=== PATIENT | female | born 1935 | race Caucasian/White ===

== ENCOUNTER 2022-01-10 10:32 | Inpatient (IN) | payer MEDICARE, BC ==
[2022-01-10] MEDS ORDERED: SODIUM CHLORIDE 0.9% 1,000 ML IV ONE (11:06)
[2022-01-10] MEDS ORDERED: MORPHINE SULFATE 4 MG/ML SYRINGE IV STA (11:06)
[2022-01-10] MEDS ORDERED: DIPH,PERTUS(ACELL)TETVAC-LF 0.5 ML VIAL IM ONE (11:11)
[2022-01-10 12:02] LABS: Basophils # (A) 0.1 k/uL (0-0.2); Basophils % (A) 1 %; Eosinophils # (A) 0.2 k/uL (0-0.7); Eosinophils % (A) 4 %; HCT 30.1 % (34.0-46.0); HGB 9.8 gm/dL (11.4-16.0); Lymphocytes # (A) 1.2 k/uL (1.0-4.8); Lymphocytes % (A) 26 %; MCH 30.1 pg (25.0-35.0); MCHC 32.4 g/dL (31.0-37.0); MCV 92.8 fL (80.0-100.0); Mean Platelet Volume 9.2; Monocytes # (A) 0.3 k/uL (0-1.0); Monocytes % (A) 7 %; Neutrophils # (A) 2.6 k/uL (1.3-7.7); Neutrophils % (A) 58 %; Platelet Count 155 k/uL (150-450); RBC 3.24 m/uL (3.80-5.40); RDW 15.2 % (11.5-15.5); WBC 4.4 k/uL (3.8-10.6)
--- NOTE | 2022-01-10 12:09 | CT ---
EXAMINATION TYPE: CT brain joseph wahl DATE OF EXAM: 01/10/2022 COMPARISON: None available HISTORY: Fall, head injury, pain to left side of neck. CT DLP: 1335.4 mGycm Automated exposure control for dose reduction was used. TECHNIQUE: CT scan of the head and cervical spine are performed without contrast. FINDINGS: Brain: Brain volume loss changes, likely age-related. Suspected mild bilateral cerebral white matter chronic microvascular ischemic changes. Scattered arterial atherosclerotic calcifications. No acute intracra nial hemorrhage or gross acute cortical infarct. No midline shift or herniation. Unremarkable basal c isterns, sella and CP angles. No gross space-occupying lesion, vasogenic edema or mass effect. Smaller right eye globe with posterior chamber hyperdensity which could be related to vitreous hemorr sandra or retinal detachment. Recommend clinical correlation and ophthalmology consultation. No gross l eft orbital abnormality. Chronic inflammatory changes of the maxillary sinuses and sphenoid sinus wit h previous sinus surgery. Opacified left mastoid air cells. Osteopenia. No definite acute calvarial b one fracture identified. Cervical spine: Anterolisthesis of C6 over C7, likely degenerative. No definite acute vertebral body collapse or acut e displaced fracture. No facet dislocation or significant subluxation. Degenerative changes of the at lantoaxial articulations more on the left side. Degenerative changes of the remainder of the cervical spine with multilevel opposing endplate osteoph ytosis, degenerated discs and uncovertebral osteoarthropathy, most evident at C5-6 level. Multilevel facet osteoarthropathy is also noted, more on the left side and most evident at C6-7 level. Nondisplaced to mildly displaced fractures of the medial aspect of the right first rib, anterior aspe ct of the right second rib as well as the left first and second ribs, likely chronic. Right C3-4 and left C4-5 neuroforaminal stenosis. Spinal canal stenosis is seen at C3-4, C4-5 and C5-6 levels. Arter ial atherosclerotic calcifications. COPD changes. No paraspinal lesion. IMPRESSION: 1. No acute intracranial posttraumatic sequela or acute calvarial bone fracture. 2. Suspected right retinal detachment versus vitreous hemorrhage as described above, possibly chronic , for clinical correlation and ophthalmology consultation. 3. No acute traumatic bony injury of the cervical spine. 4. Degenerative changes of the cervical spine as described above. 5. Bilateral upper rib fractures, possibly chronic, please correlate clinically. Other incidental fin dings as described above.
[2022-01-10 12:17] LABS: Partial Thromboplastin Time 21.8 sec (22.0-30.0)
[2022-01-10 12:22] LABS: Calcium 9.5 mg/dL (8.4-10.2); Total Bilirubin 0.5 mg/dL (0.2-1.3); Total Protein 9.4 g/dL (6.3-8.2)
--- NOTE | 2022-01-10 12:31 | XR ---
EXAMINATION TYPE: XR pelvis AP view, XR tibia fibula RT, XR knee limited RT, XR femur RT DATE OF EXAM: 01/10/2022 CLINICAL HISTORY: Pelvic and right femur along with leg and knee pain after fall injury. TECHNIQUE: A single AP view of the pelvis is obtained. Two views of the right hip are obtained. COMPARISON: None. FINDINGS: There is acute comminuted displaced intertrochanteric fracture right proximal femur. Subtle lucency w ith cortical breakthrough suspected peripheral superior pelvic ramus fracture near level of acetabulu m. No hip joint dislocation. Pubic symphysis is not widened. Sacroiliac joints are preserved. Occasio nal scattered pelvic phleboliths. No additional acute fracture or dislocation in the mid to distal right femur. Metallic hardware from total right knee arthroplasty is satisfactory in position. No periprosthetic f racture. Right leg shows no acute fracture or dislocation in the tibia or fibula. There is poor AP positioning noted. Overlying soft tissue is unremarkable. IMPRESSION: There is acute comminuted displaced intertrochanteric fracture right proximal femur. The re is additional acute minimally displaced fracture of the peripheral aspect of the right superior pe lvic ramus near level of acetabulum. Consider CT follow-up to further evaluate.
--- NOTE | 2022-01-10 12:32 | XR ---
EXAMINATION TYPE: XR chest 1V portable DATE OF EXAM: 01/10/2022 COMPARISON: NONE HISTORY: Fall injury with pain. TECHNIQUE: Single frontal supine view of the chest is obtained. FINDINGS: Reticular interstitial prominence bilaterally. There is no suspicious focal air space opac ity, pleural effusion, or pneumothorax seen. The cardiac silhouette size is mildly enlarged. Surgica l change right scapula with screw. Partial visualization of surgical change left humeral head. IMPRESSION: Mild cardiomegaly and chronic parenchymal changes without acute pulmonary process.
[2022-01-10] MEDS ORDERED: MORPHINE SULFATE 4 MG/ML SYRINGE IVP STA (12:59)
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
--- NOTE | 2022-01-10 13:32 | CT ---
EXAMINATION TYPE: CT pelvis wo con DATE OF EXAM: 01/10/2022 INDICATION: pelvic and RT HIP FRACTURE CT DLP: 381.7 mGy.cm Automated Exposure Control for Dose Reduction was Utilized. TECHNIQUE AND CONTRAST: CT scan of the pelvic bones is performed without IV contrast administration. 3-D reconstruction image s were generated on an independent workstation and reviewed. COMPARISON: X-ray performed earlier same day. FINDINGS: Acute comminuted partially impacted and slightly angulated right femoral neck intertrochanteric fract ure with multiple bone fragments and a gap up to 15 mm at the fracture site. Posterior angu lation of the distal fracture fragment. Surrounding right gluteal and right upper thigh soft tissue s welling/hematoma. Chronic healed fractures of the right superior, right inferior pubic rami as well as the right body o f the pubis and left inferior pubic ramus. Subtle acute on top of chronic fracture of the right super ior pubic ramus and right body of pubis cannot be excluded. Healing/healed fracture of the S5 segment of the sacrum. Mild degenerative changes of the hip joints and sacroiliac joints. Advanced degenerative changes of t he lumbar spine. Lemos catheter is seen within the urinary bladder. Significant fecal loading of the colon suggestive of constipation. Arterial atherosclerotic calcifications. Suspected cyst arising fro m the anterior aspect of the right kidney. Right lateral upper thigh muscular lipoma measuring 3.3 cm . IMPRESSION: Right femoral neck intertrochanteric communicated fracture as described above, for orthopedic consult ation. Other pelvic bone fractures, likely chronic as detailed above. Right gluteal and right upper t high soft tissue swelling/hematoma. Other incidental findings as described above.
[2022-01-10] MEDS ORDERED: NALOXONE 0.4 MG/ML 1 ML VIAL IV PRN (14:20)
[2022-01-10] MEDS: SODIUM CHLORIDE 0.9% 1,000 ML IV SCH (14:32)
[2022-01-10] MEDS ORDERED: HYDROmorphone 0.5 MG/0.5 ML SYRINGE IVP STA (16:39)
[2022-01-10] MEDS: ARTIFICIAL TEARS-HYPROMELLOSE DROPS 15 ML BTL LEFT EYE SCH ×2 (17:07→21:14)
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
[2022-01-10] MEDS ORDERED: ALPRAZolam 1 MG TAB PO PRN (17:38)
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
[2022-01-10] MEDS: lisinopriL 20 MG TAB PO SCH (18:12)
[2022-01-10] MEDS: MORPHINE SULFATE 4 MG/ML SYRINGE IVP PRN (18:13)
[2022-01-10] MEDS: HYDROcodone/APAP 5-325MG 1 EACH TAB PO PRN (19:47)
[2022-01-10] MEDS: SERTRALINE 100 MG TAB PO SCH (21:14)
[2022-01-11] MEDS: MORPHINE SULFATE 4 MG/ML SYRINGE IVP PRN ×3 (05:20→15:10)
[2022-01-11] MEDS: SODIUM CHLORIDE 0.9% 1,000 ML IV SCH ×2 (06:20→19:30)
[2022-01-11] MEDS: SERTRALINE 100 MG TAB PO SCH ×2 (06:59→19:30)
[2022-01-11] MEDS: OXYBUTYNIN 10 MG TAB.ER.24 PO SCH (06:59)
[2022-01-11] MEDS: ARTIFICIAL TEARS-HYPROMELLOSE DROPS 15 ML BTL LEFT EYE SCH ×5 (07:00→22:24)
[2022-01-11] MEDS ORDERED: MIDAZOLAM 2 MG/2 ML VIAL ONE (07:55)
[2022-01-11] MEDS ORDERED: fentaNYL (PF) 50 MCG/ML 2 ML AMP ONE (07:55)
[2022-01-11] MEDS ORDERED: PROPOFOL 10 MG/ML 20 ML VIAL IV ONE (07:55)
[2022-01-11] MEDS ORDERED: KETAMINE 10 MG/ML 20 ML VIAL ONE (07:55)
[2022-01-11] MEDS ORDERED: LACTATED RINGERS 1,000 ML IV ONE (08:01)
[2022-01-11 09:00] LABS: African American GFR (CKD) 46.7 (60.0-200.0); Albumin 3.4 g/dL (3.8-4.9); Albumin/Globulin Ratio 0.94 (1.60-3.17); Anion Gap 11.9 mmol/L (10.00-18.00); BUN/Creat Ratio 24.33 Ratio (12.00-20.00); Blood Urea Nitrogen 29.2 mg/dL (9.0-27.0); Carbon Dioxide 20.1 mmol/L (20.0-27.5); Globulin 3.6 g/dL (1.6-3.3); Non-African American GFR(CKD) 40.3 (60.0-200.0); Potassium 5.4 mmol/L (3.5-5.5); Total Bilirubin 0.4 mg/dL (0.30-1.20)
[2022-01-11] MEDS ORDERED: ceFAZolin 1,000 MG in SODIUM CHLORIDE 0.9% 1,000 ML IRRIGATION ONE (09:13)
[2022-01-11 09:45] LABS: Basophils # (A) 0.04 X 10*3/uL (0.00-0.10); Basophils % (A) 0.6 %; Eosinophils # (A) 0.04 X 10*3/uL (0.04-0.35); Eosinophils % (A) 0.6 %; HCT 24.3 % (37.2-46.3); HGB 7.3 g/dL (12.0-15.0); Immature Grans, Automated 0.5 %; Lymphocytes % (A) 23.3 %; MCH 28.5 pg (27.0-32.0); MCV 94.9 fL (80.0-97.0); Mean Platelet Volume 11.7 fL (9.5-12.2); Monocytes # (A) 0.95 X 10*3/uL (0.20-1.00); Monocytes % (A) 14.7 %; NRBC Per 100 WBC 0 /100 WBCS (0.0-0.0); Neutrophils # (A) 3.89 X 10*3/uL (1.80-7.70); Neutrophils % (A) 60.3 %; Platelet Count 87 X 10*3/uL (140-440); RBC 2.56 X 10*6/uL (4.10-5.20); RBC Morphology NORMAL; RDW 15.1 % (11.5-14.5); WBC 6.45 X 10*3/uL (4.50-10.00)
[2022-01-11] MEDS ORDERED: ACETAMINOPHEN TAB 325 MG TAB PO PRN (10:17)
[2022-01-11] MEDS ORDERED: NALOXONE 0.4 MG/ML 1 ML VIAL IV PRN (10:17)
--- NOTE | 2022-01-11 10:29 | XR ---
EXAMINATION TYPE: XR Hip Complete RT DATE OF EXAM: 01/11/2022 10:03 AM INDICATION: Patient age:Female; 86 years old; Reason for study: IM Nail Rt Hip; PHH. Intraoperative fluoroscopic services were provided for internal fixation of a right proximal femur. T otal fluoroscopy time 1.57 minutes with a total of 2 submitted images to PACS. Please see the operati ve note for further details.
[2022-01-11 13:43] LABS: Basophils # (A) 0.1 k/uL (0-0.2); Basophils % (A) 0 %; Eosinophils # (A) 0.1 k/uL (0-0.7); Eosinophils % (A) 0 %; HCT 31.6 % (34.0-46.0); HGB 9.2 gm/dL (11.4-16.0); Hypochromasia Marked; Lymphocytes % (A) 14 %; MCH 29.6 pg (25.0-35.0); MCV 102.3 fL (80.0-100.0); Macrocytosis Slight; Mean Platelet Volume 8.1; Monocytes # (A) 1.1 k/uL (0-1.0); Monocytes % (A) 8 %; Neutrophils # (A) 10.8 k/uL (1.3-7.7); Neutrophils % (A) 76 %; Platelet Count 148 k/uL (150-450); RBC 3.09 m/uL (3.80-5.40); RDW 14.7 % (11.5-15.5); WBC 14.3 k/uL (3.8-10.6)
[2022-01-11] MEDS: lisinopriL 20 MG TAB PO SCH (15:02)
--- NOTE | 2022-01-11 15:29 | P.PN ---
Subjective Progress Note Date: 01/11/22 Principal diagnosis: R hip pain Patient status post IM nail for right hip intertrochanteric fracture status post fall. Her hemoglobin this morning dropped from 9.8-7.3 but is 9.2 on repeat. Reports from nursing for BP 170s over 90s. BP is 174/68 when rechecked at bedside. Patient reports well-controlled pain in her right hip. She has no complaints otherwise. She denies any chest pain, shortness breath or palpitations. No nausea or vomiting. No fever or chills. Objective - Vital Signs Vital signs: Vital Signs Temp 97.5 F L 01/11/22 15:04 Pulse 91 01/11/22 15:04 Resp 17 01/11/22 15:04 BP 147/64 01/11/22 15:04 Pulse Ox 96 01/11/22 15:04 Intake & Output 01/10/22 01/11/22 01/11/22 18:59 06:59 18:59 Intake Total 750 601 Output Total 650 625 450 Balance -650 125 151 Weight 64.864 kg Intake: IV 601 Oral 750 Output: Urine 650 625 300 Estimated Blood Loss 150 Other: Voiding Method Indwelling Catheter # Bowel Movements 0 - Exam General: [non toxic], [no distress], [appears at stated age] Derm: [warm], [dry] Head: [atraumatic], [normocephalic], [symmetric] Eyes: [EOMI], [no lid lag], [anicteric sclera] Mouth: [no lip lesion], [mucus membranes moist] Cardiovascular: [S1S2 reg], [no murmur], [positive DP pulse bilateral], Lungs: [CTA bilateral], [no rhonchi, no rales] , [no accessory muscle use] Ext: [no gross muscle atrophy], [no edema], [limited range of motion of the right hip due to pain], [right hip dressing clean dry and intact] Neuro: [no focal neuro deficits] Psych: [Alert], [oriented], [appropriate affect] - Labs CBC & Chem 7: 01/11/22 13:00 01/11/22 05:07 Labs: Abnormal Lab Results - Last 24 Hours (Table) 01/11/22 01/11/22 01/11/22 Range/Units 05:07 05:07 13:00 WBC 14.3 H (3.8-10.6) k/uL RBC 2.56 L 3.09 L (4.10-5.20) X 10*6/uL Hgb 7.3 L 9.2 L (12.0-15.0) g/dL Hct 24.3 L 31.6 L (37.2-46.3) % MCV 102.3 H D (80.0-100.0) fL MCHC 30.0 L 29.0 L (32.0-37.0) g/dL RDW 15.1 H (11.5-14.5) % Plt Count 87 L 148 L (140-440) X 10*3/uL Plt Count Comment DECREASED A Neutrophils # 10.8 H (1.3-7.7) k/uL Monocytes # 1.1 H (0-1.0) k/uL BUN 29.2 H (9.0-27.0) mg/dL Est GFR (CKD-EPI)AfAm 46.7 L (60.0-200.0) Est GFR (CKD-EPI)NonAf 40.3 L (60.0-200.0) BUN/Creatinine Ratio 24.33 H (12.00-20.00) Ratio Glucose 125 H (70-110) mg/dL AST 10 L (13-35) U/L ALT 7 L (8-44) U/L Albumin 3.4 L (3.8-4.9) g/dL Globulin 3.6 H (1.6-3.3) g/dL Albumin/Globulin Ratio 0.94 L (1.60-3.17) g/dL Assessment and Plan Assessment: #Acute blood loss anemia #Isolated systolic hypertension #Leukocytosis #Acute kidney injury #Right hip pain status post IM nail POD 0 for right femoral neck intertrochanteric fracture Chronic conditions: Urinary incontinence, depression Her hemoglobin postoperatively was 7.3 significant drop from 9.8. However, repeat at 1 PM is 9.2. We will repeat CBC tomorrow morning. Transfuse if hemoglobin less than 7. Patient is noted to isolated elevated systolic blood pressure as high as 170s. When her BP was checked during my rounds, her SBP was 150s. Will give her dose of lisinopril early. She is on lisinopril 20 mg by mouth at bedtime. Continue heart healthy diet. Monitor vitals and adjust medication if necessary. Her leukocytosis is likely reactive from surgery. There are no signs of active infection. We will continue to monitor. Her acute kidney injury has improved since admission. Unknown if superimposed on CKD given no baseline creatinine. Continue IV hydration for 1 more day. Repeat BMP tomorrow morning. PT and OT will be consulted to work with this patient. Her pain is well- controlled with morphine as needed. Lovenox for DVT prophylaxis. DC planning as per PT and OT recommendations.
[2022-01-11] MEDS: SENNOSIDES-DOCUSATE SODIUM 1 EACH TAB PO SCH (19:30)
[2022-01-11] MEDS: HYDROcodone/APAP 5-325MG 1 EACH TAB PO PRN (19:31)
--- NOTE | 2022-01-11 21:25 | P.OP ---
Date of Procedure: 01/11/22 Preoperative Diagnosis: Right 4-part Intertrochanteric Hip Fracture Postoperative Diagnosis: Right 4-part Intertrochanteric Hip Fracture Procedure(s) Performed: Cephalomedullary nailing of right 4-part intertrochanteric proximal femur fracture Implants: 1.) [place] Gamma3 cephalomedullary nail [id number] 2.) 10.5x105 mm Lag screw 3.) 5X42.5mm distal locking screw Anesthesia: spinal Surgeon: Ankur Lewis Disability Specialist #1: Fahad Figueredo Estimated Blood Loss (ml): 150 Pathology: none sent Condition: stable Disposition: PACU Description of Procedure: This is a 86 year old blind female who sustained a right 4-part unstable IT fracture after a fall from standing and presents today for surgical intervention. Risks and benefits of surgery were discussed with the patient including bleeding, damage to surrounding tissue, infection, need for further surgery as well as risks of anesthesia including pulmonary embolism and even and the patient wished to proceed with surgical intervention. The patient was seen in the pre-operative area by myself. Consent and H&P were completed and updated. The correct extremity was marked in the pre-operative area by myself and all other questions were answered. Operative Narrative: The patient was brought to the operating room by the department of anesthesia. Spinal anesthesia was performed. The patient was then transferred to the [place] traction table. All misty prominences were well padded. Timeout was performed indicating the correct patient, procedure and laterality and all in the room were in agreement. Closed reduction maneuver was performed consisting of traction, adduction/abduction and internal rotation. Due to the unstable pattern with complete loss of the posteromedial calcar and greater than 4 part nature of the fracture pattern closed reduction was not able to be successfully achieved therefore decision to proceed with minimally invasive open reduction was made. The patient was then prepped and draped in normal sterile fashion. A 2cm stab incision was made along the lateral aspect of the thigh and IT fascia was splint. A homann retractor was then inserted and advanced along the anterior cortex of the anteriorly rotated portion of the proximal fragment and a downward force was applied and held by orthotic assistant and acceptable reduction was appreciated on lateral and AP views. 5cm longitudinal incision was made 3 finger breadths above the level of the greater trochanter. The gluteal fascia was split with scalpel and blunt fingertip dissection was taken down to the tip of the greater trochanter. A starting awl was then used to initiate the starting point at the tip of the greater trochanter inline with the medullary canal on AP and lateral views. Awl was then gently advanced but due to the extensive comminution of the greater trochanter the broad force that the awl was providing was causing displacement, therefore decision was made to proceed with standard free guide wire placement for entrance into the canal. 3.2mm guide wire was then inserted at the medial aspect of the greater trochanter trying to avoid comminution present along the lateral aspect of the greater trochanter, intramedullary placement was confirmed on X-ray. Opening reamer was then used to ream over the guide wire down to the level of the lesser trochanter. Guide wire was then removed and ball tip guidewire was inserted and intra-medullary placement was confirmed. A IT MOVES IT Gamma3 [id number] IMN was then inserted over the ball tip guidewire and impacted to the appropriate depth. Lag screw guide was then placed and skin incision was made along the lateral aspect of the femur, IT fascia was split and guidewire sleeve was inserted down to bone. Threaded k-wire was then advanced through the femoral neck to subchondral bone of the femoral head withou t penetrating the cortex and confirmed on AP/Lat views. Size was measured at 105mm. Drill was then set to 105mm and over drilling was performed. A 10.5x 105mm lag screw was then inserted to an appropriate TAD distance. Guide pin was then removed. Set screw was then placed proximally and a quarter back turn was performed and there was a small amount of play when lag screw was twisted indicating correct seating of the set screw in the lag screw rivets. Homann retractor assisting in percutaneous reduction was then removed and the fracture remained reduced on imaging. Distal locking attachment was then set to static locking. Drilling was performed and measured with depth gauge. A 42.5x5mm distal locking screw was then placed. Final imaging was taken confirming appropriate reduction of fracture. Wounds were irrigated with sterile saline. Gluteal and IT fascia was closed with 0 vicryl suture, followed by subcutaneous closure with 2- 0 vicryl suture and trisha and a sterile optifoam dressing. The patient was then awoken by the department of anesthesia and transferred to PACU in stable condition. Fahad MCGHEE was present for entire case to assist in reduction and hardward placement. -Ankur Lewis DO Orthopedic Surgeon
[2022-01-12] MEDS: MORPHINE SULFATE 4 MG/ML SYRINGE IVP PRN (00:36)
[2022-01-12] MEDS: SERTRALINE 100 MG TAB PO SCH ×2 (07:58→22:01)
[2022-01-12] MEDS: ARTIFICIAL TEARS-HYPROMELLOSE DROPS 15 ML BTL LEFT EYE SCH ×4 (07:58→22:01)
[2022-01-12] MEDS: OXYBUTYNIN 10 MG TAB.ER.24 PO SCH (07:58)
[2022-01-12] MEDS ORDERED: ENOXAPARIN 40 MG/0.4 ML SYRINGE SQ SCH (09:00)
[2022-01-12 09:30] LABS: African American GFR (CKD) 41.6 (60.0-200.0); Anion Gap 10.8 mmol/L (10.00-18.00); BUN/Creat Ratio 22.2 Ratio (12.00-20.00); Blood Urea Nitrogen 29.3 mg/dL (9.0-27.0); Calcium 8.2 mg/dL (8.7-10.3); Carbon Dioxide 19.2 mmol/L (20.0-27.5); Non-African American GFR(CKD) 35.9 (60.0-200.0); Potassium 4.7 mmol/L (3.5-5.5)
--- NOTE | 2022-01-12 09:53 | P.PN ---
Subjective Progress Note Date: 01/12/22 Principal diagnosis: Right hip IT fracture Patient was seen at bedside this morning resting comfortably lying in semirecumbent position. Patient says she has having some pain in the right hip. Patient says this is mostly right over her incisions. She says she has not been up with physical therapy yet this morning. However, patient says she is willing and ready to stand up with physical therapy today. Patient denies chest pain, fever, chest breath, nausea, vomiting. Objective - Vital Signs Vital signs: Vital Signs Temp 98.1 F 01/12/22 08:00 Pulse 77 01/12/22 08:00 Resp 17 01/12/22 08:00 BP 107/62 01/12/22 08:00 Pulse Ox 96 01/12/22 08:00 Intake & Output 01/11/22 01/12/22 01/12/22 18:59 06:59 18:59 Intake Total 601 Output Total 650 400 Balance -49 -400 Intake: IV 601 Output: Urine 500 400 Estimated Blood Loss 150 Other: Voiding Method Indwelling Catheter - Exam Inspection: Opti-foam dressings present on right lateral upper leg. Steele are well aligned and in good place. There is some serosanguineous drainage along the distal dressings. Some ecchymosis present along the right upper leg. Sensation: Sensation is equal, symmetric, bilaterally intact throughout. Palpation: There is moderate tenderness to palpation diffusely throughout the Right hip especially in lateral region over proximal incision. Nontender to palpation throughout rest of exam. Negative Homans bilaterally Range of motion: Patient is able to flex and extend digits in right foot and plantar/dorsiflex right ankle. Right hip/knee ROM limited due to pain. Patient has full range of motion in bilateral UE and LLE Motor: Left leg - 4+/5 in resisted hip flexion/extension, knee flexion/extension, plantar flexion/dorsiflexion the left ankle; 4+/5 in resisted elbow flexion/extension, wrist flexion/extension, shoulder abduction, internal/external rotation of the bilateral UE. Patient is able to dorsi and plantarflex right ankle. Right hip/knee motor exams limited due to patient's pain. [place] Feather Trimmer strength 4+/5 in bilateral UE Neurovascular: Refill under 3 seconds bilaterally in upper extremity digits. DP pulses intact, bilaterally, 2+. - Labs CBC & Chem 7: 04/09/22 13:00 01/12/22 05:04 Labs: Abnormal Lab Results - Last 24 Hours (Table) 01/11/22 01/12/22 Range/Units 13:00 05:04 WBC 14.3 H (3.8-10.6) k/uL RBC 3.09 L (3.80-5.40) m/uL Hgb 9.2 L (11.4-16.0) gm/dL Hct 31.6 L (34.0-46.0) % MCV 102.3 H D (80.0-100.0) fL MCHC 29.0 L (31.0-37.0) g/dL Plt Count 148 L (150-450) k/uL Neutrophils # 10.8 H (1.3-7.7) k/uL Monocytes # 1.1 H (0-1.0) k/uL Carbon Dioxide 19.2 L (20.0-27.5) mmol/L BUN 29.3 H (9.0-27.0) mg/dL Est GFR (CKD-EPI)AfAm 41.6 L (60.0-200.0) Est GFR (CKD-EPI)NonAf 35.9 L (60.0-200.0) BUN/Creatinine Ratio 22.20 H (12.00-20.00) Ratio Glucose 132 H (70-110) mg/dL Calcium 8.2 L (8.7-10.3) mg/dL Assessment and Plan Assessment: 1. Right hip intertrochanteric fracture status post fall; chronic pubic rami fractures Postoperative day 1 status post right hip IM nail Plan: Plan: 1. Right hip intertrochanteric fracture status post fall; chronic pubic rami fractures - surgery performed yesterday, 01/11/2022 -right hip IM nail. patient stable at bedside this morning. We'll continue to follow patient while in hospital. Plan is for likely discharge to [facility] sometime this week 2. Appreciate medical management 3. Pain management - [place]; Dilaudid 4. DVT ppx - Lovenox 5. GI ppx - senna 6. PT/OT - weightbearing as tolerated with walker and assistance 7. Encourage incentive spirometer use 8. Discharge planning - pending Time with Patient: Less than 30
[2022-01-12] MEDS: SODIUM CHLORIDE 0.9% 1,000 ML IV SCH (11:25)
[2022-01-12 11:51] LABS: HCT 20.5 % (37.2-46.3); MCH 29.1 pg (27.0-32.0); MCHC 29.3 g/dL (32.0-37.0); MCV 99.5 fL (80.0-97.0); Mean Platelet Volume 12.3 fL (9.5-12.2); NRBC Per 100 WBC 0 /100 WBCS (0.0-0.0); Platelet Count 100 X 10*3/uL (140-440); RBC 2.06 X 10*6/uL (4.10-5.20); RDW 15.3 % (11.5-14.5); WBC 6.43 X 10*3/uL (4.50-10.00)
[2022-01-12] MEDS ORDERED: ARTIFICIAL TEARS OINTMENT 3.5 GM TUBE BOTH EYES PRN (12:22)
--- NOTE | 2022-01-12 12:28 | P.PN ---
Subjective Progress Note Date: 01/12/22 Principal diagnosis: R hip pain Patient status post IM nail for right hip intertrochanteric fracture status post fall. Her hemoglobin this morning dropped to 6.0. Patient reports well-controlled pain in her right hip. She has no complaints otherwise. She denies any chest pain, shortness breath or palpitations. No nausea or vomiting. No fever or chills. Requesting restarting acyclovir for eye infection along with lubricant eyedrops. Objective - Vital Signs Vital signs: Vital Signs Temp 98.1 F 01/12/22 08:00 Pulse 77 01/12/22 08:00 Resp 17 01/12/22 08:00 BP 107/62 01/12/22 08:00 Pulse Ox 96 01/12/22 08:00 Intake & Output 01/11/22 01/12/22 01/12/22 18:59 06:59 18:59 Intake Total 601 Output Total 650 400 Balance -49 -400 Intake: IV 601 Output: Urine 500 400 Estimated Blood Loss 150 Other: Voiding Method Indwelling Catheter - Exam General: [non toxic], [no distress], [appears at stated age] Derm: [warm], [dry] Head: [atraumatic], [normocephalic], [symmetric] Eyes: [EOMI], [no lid lag], [anicteric sclera] Mouth: [no lip lesion], [mucus membranes moist] Cardiovascular: [S1S2 reg], [no murmur], [positive DP pulse bilateral], Lungs: [CTA bilateral], [no rhonchi, no rales] , [no accessory muscle use] Ext: [no gross muscle atrophy], [no edema], [limited range of motion of the right hip due to pain], [right hip dressing clean dry and intact] Neuro: [no focal neuro deficits] Psych: [Alert], [oriented], [appropriate affect] - Labs CBC & Chem 7: 01/12/22 05:04 01/12/22 05:04 Labs: Abnormal Lab Results - Last 24 Hours (Table) 01/10/22 01/11/22 01/12/22 Range/Units 14:25 13:00 05:04 WBC 14.3 H (3.8-10.6) k/uL RBC 3.09 L (3.80-5.40) m/uL Hgb 9.2 L (11.4-16.0) gm/dL Hct 31.6 L (34.0-46.0) % MCV 102.3 H D (80.0-100.0) fL MCHC 29.0 L (31.0-37.0) g/dL RDW (11.5-14.5) % Plt Count 148 L (150-450) k/uL MPV (9.5-12.2) fL Neutrophils # 10.8 H (1.3-7.7) k/uL Monocytes # 1.1 H (0-1.0) k/uL Carbon Dioxide 19.2 L (20.0-27.5) mmol/L BUN 29.3 H (9.0-27.0) mg/dL Est GFR (CKD-EPI)AfAm 41.6 L (60.0-200.0) Est GFR (CKD-EPI)NonAf 35.9 L (60.0-200.0) BUN/Creatinine Ratio 22.20 H (12.00-20.00) Ratio Glucose 132 H (70-110) mg/dL Calcium 8.2 L (8.7-10.3) mg/dL Crossmatch See Detail 01/12/22 Range/Units 05:04 WBC (3.8-10.6) k/uL RBC 2.06 L (3.80-5.40) m/uL Hgb 6.0 L* (11.4-16.0) gm/dL Hct 20.5 L (34.0-46.0) % MCV 99.5 H (80.0-100.0) fL MCHC 29.3 L (31.0-37.0) g/dL RDW 15.3 H (11.5-14.5) % Plt Count 100 L (150-450) k/uL MPV 12.3 H (9.5-12.2) fL Neutrophils # (1.3-7.7) k/uL Monocytes # (0-1.0) k/uL Carbon Dioxide (20.0-27.5) mmol/L BUN (9.0-27.0) mg/dL Est GFR (CKD-EPI)AfAm (60.0-200.0) Est GFR (CKD-EPI)NonAf (60.0-200.0) BUN/Creatinine Ratio (12.00-20.00) Ratio Glucose (70-110) mg/dL Calcium (8.7-10.3) mg/dL Crossmatch Assessment and Plan Assessment: #Acute blood loss anemia #Isolated systolic hypertension #Acute kidney injury #Right hip pain status post IM nail POD 0 for right femoral neck intertrochanteric fracture Resolved: Leukocytosis Chronic conditions: Urinary incontinence, depression Her hemoglobin this morning is 6. Likely a result of surgery. No obvious signs of bleeding. Transfuse 1 unit PRBC. We will repeat CBC tomorrow morning. Her blood pressure is under control today. She is on lisinopril 20 mg by mouth at bedtime. Continue heart healthy diet. Monitor vitals and adjust medication if necessary. Her acute kidney injury has improved since admission. Unknown if superimposed on CKD given no baseline creatinine. DC IVF and encourage hydration by mouth. Repeat BMP tomorrow morning. PT and OT will be consulted to work with this patient. Her pain is well- controlled with morphine as needed. Lovenox for DVT prophylaxis. DC planning as per PT and OT recommendations.
[2022-01-12] MEDS: ACYCLOVIR 200 MG CAP PO SCH ×2 (14:59→22:00)
[2022-01-12] MEDS: HYDROcodone/APAP 5-325MG 1 EACH TAB PO PRN (16:31)
[2022-01-12] MEDS: SENNOSIDES-DOCUSATE SODIUM 1 EACH TAB PO SCH (22:01)
[2022-01-12] MEDS: HYDROmorphone 0.5 MG/0.5 ML SYRINGE IVP PRN (22:02)
[2022-01-13] MEDS: lisinopriL 20 MG TAB PO SCH ×2 (01:34→21:30)
[2022-01-13] MEDS: ACYCLOVIR 200 MG CAP PO SCH ×5 (01:34→21:29)
[2022-01-13] MEDS: HYDROmorphone 0.5 MG/0.5 ML SYRINGE IVP PRN ×2 (05:59→19:48)
[2022-01-13] MEDS: SERTRALINE 100 MG TAB PO SCH ×2 (08:13→21:29)
[2022-01-13] MEDS: ENOXAPARIN 30 MG/0.3 ML SYRINGE SQ SCH (08:13)
[2022-01-13] MEDS: OXYBUTYNIN 10 MG TAB.ER.24 PO SCH (08:14)
[2022-01-13] MEDS: ARTIFICIAL TEARS-HYPROMELLOSE DROPS 15 ML BTL LEFT EYE SCH ×4 (08:14→21:30)
--- NOTE | 2022-01-13 10:14 | P.PN ---
Subjective Progress Note Date: 01/13/22 Principal diagnosis: Right hip IT fracture Patient was seen at bedside this morning resting comfortably lying in semirecumbent position. Patient says she has having some pain in the right hip. Patient says this is mostly right over her incisions. She says she has not been up with physical therapy yet this morning. However, patient says she is willing and ready to stand up with physical therapy today. Patient denies chest pain, fever, chest breath, nausea, vomiting. Objective - Vital Signs Vital signs: Vital Signs Temp 98.5 F 01/13/22 07:09 Pulse 75 01/13/22 07:09 Resp 18 01/13/22 07:09 BP 109/55 01/13/22 07:09 Pulse Ox 96 01/13/22 07:09 Intake & Output 01/12/22 01/13/22 01/13/22 18:59 06:59 18:59 Intake Total 310 Output Total 800 800 Balance -490 -800 Intake: Blood Product 310 Rc As-1 Unit 310 [id number] Output: Urine 800 800 Other: Voiding Method Indwelling Catheter - Exam Inspection: Opti-foam dressings present on right lateral upper leg. Walls are well aligned and in good place. There is some serosanguineous drainage along the distal dressings. Some ecchymosis present along the right upper leg. Sensation: Sensation is equal, symmetric, bilaterally intact throughout. Palpation: There is moderate tenderness to palpation diffusely throughout the Right hip especially in lateral region over proximal incision. Nontender to palpation throughout rest of exam. Negative Homans bilaterally Range of motion: Patient is able to flex and extend digits in right foot and plantar/dorsiflex right ankle. Right hip/knee ROM limited due to pain. Patient has full range of motion in bilateral UE and LLE Motor: Left leg - 4+/5 in resisted hip flexion/extension, knee flexion/extension, plantar flexion/dorsiflexion the left ankle; 4+/5 in resisted elbow flexion/extension, wrist flexion/extension, shoulder abduction, internal/external rotation of the bilateral UE. Patient is able to dorsi and plantarflex right ankle. Right hip/knee motor exams limited due to patient's pain. Solderer Barrel Ribs strength 4+/5 in bilateral UE Neurovascular: Refill under 3 seconds bilaterally in upper extremity digits. DP pulses intact, bilaterally, 2+. - Labs CBC & Chem 7: 01/12/22 05:04 01/12/22 05:04 Labs: Abnormal Lab Results - Last 24 Hours (Table) 01/10/22 01/12/22 Range/Units 14:25 05:04 RBC 2.06 L (4.10-5.20) X 10*6/uL Hgb 6.0 L* (12.0-15.0) g/dL Hct 20.5 L (37.2-46.3) % MCV 99.5 H (80.0-97.0) fL MCHC 29.3 L (32.0-37.0) g/dL RDW 15.3 H (11.5-14.5) % Plt Count 100 L (140-440) X 10*3/uL MPV 12.3 H (9.5-12.2) fL Crossmatch See Detail Assessment and Plan Assessment: 1. Right hip intertrochanteric fracture status post fall; chronic pubic rami fractures Postoperative day 2 status post right hip IM nail Plan: Plan: 1. Right hip intertrochanteric fracture status post fall; chronic pubic rami fractures - surgery performed 01/11/2022 -right hip IM nail. patient stable at bedside this morning. We'll continue to follow patient while in hospital. Plan is for likely discharge to [facility] sometime this week 2. Appreciate medical management 3. Pain management - [place]; Dilaudid 4. Acute Blood Loss Anemia - patient received 1 unit PRBC's yesterday. Waiting on results from CBC taken this morning 5. DVT & GI ppx - Lovenox; Senna 6. PT/OT - weightbearing as tolerated with walker and assistance 7. Encourage incentive spirometer use 8. Discharge planning - pending Time with Patient: Less than 30
[2022-01-13 11:13] LABS: Basophils # (A) 0.04 X 10*3/uL (0.00-0.10); Basophils % (A) 0.6 %; Eosinophils # (A) 0.25 X 10*3/uL (0.04-0.35); Eosinophils % (A) 3.6 %; Immature Grans, Automated 0.3 %; Lymphocytes # (A) 2.28 X 10*3/uL (0.90-5.00); Lymphocytes % (A) 32.7 %; Monocytes # (A) 1.06 X 10*3/uL (0.20-1.00); Monocytes % (A) 15.2 %; NRBC Per 100 WBC 0 /100 WBCS (0.0-0.0); Neutrophils # (A) 3.32 X 10*3/uL (1.80-7.70); Neutrophils % (A) 47.6 %
[2022-01-13 11:24] LABS: HCT 21.7 % (37.2-46.3); HGB 6.5 g/dL (12.0-15.0); MCH 28.4 pg (27.0-32.0); MCV 94.8 fL (80.0-97.0); Mean Platelet Volume 12.2 fL (9.5-12.2); Platelet Count 112 X 10*3/uL (140-440); RBC 2.29 X 10*6/uL (4.10-5.20); RDW 16.9 % (11.5-14.5); WBC 6.97 X 10*3/uL (4.50-10.00)
[2022-01-13 11:35] LABS: Immature Platelet Fraction 6.2 % (1.1-6.1); RBC Morphology NORMAL
[2022-01-13] MEDS: HYDROcodone/APAP 5-325MG 1 EACH TAB PO PRN (14:54)
--- NOTE | 2022-01-13 16:16 | P.PN ---
Subjective Progress Note Date: 01/13/22 Postop day #2 status post intertrochanteric right hip fracture. Patient reports that her pain has significantly improved since yesterday, pain is worsened with ambulation or weightbearing however. Hemoglobin was 6.0 yesterday, she received 1 unit. Received transfusion. Hemoglobin only increased to 6.5 today, another unit of blood was ordered today as well. Vital signs of an stable, but patient reports feeling lightheaded with ambulation. She denies any chest pain, shortness of breath Objective - Vital Signs Vital signs: Vital Signs Temp 99.5 F 01/13/22 14:06 Pulse 98 01/13/22 14:06 Resp 16 01/13/22 14:06 BP 139/64 01/13/22 14:06 Pulse Ox 97 01/13/22 15:52 Intake & Output 01/12/22 01/13/22 01/13/22 18:59 06:59 18:59 Intake Total 310 0 Output Total 800 800 Balance -490 -800 0 Intake: Blood Product 310 0 Rc As-1 Unit 310 [id number] Rc Pheresis As-3 Unit 0 [id number] Output: Urine 800 800 Other: Voiding Method Indwelling Catheter - Constitutional General appearance: Present: cooperative - EENT EENT Comment(s): pt is blind Eyes: Present: abnormal pupil - Respiratory Respiratory: bilateral: CTA, negative: rales, rhonchi, wheezing - Cardiovascular Rhythm: regular Heart sounds: normal: S1, S2 Abnormal Heart Sounds: Present: systolic murmur - Gastrointestinal General gastrointestinal: Present: normal bowel sounds. Absent: tenderness - Integumentary Integumentary Comment(s): Right lateral thigh incision noted with stables in place. There is some serosanguineous drainage, mild tenderness palpation, no induration, no signs of infection - Neurologic Neurologic: Present: CNII-XII intact. Absent: focal deficits - Musculoskeletal Musculoskeletal Comment(s): Right hip and knee range of motion is limited to pain, full range of motion in left lower extremity and bilateral upper extremities. - Labs CBC & Chem 7: 01/13/22 05:14 01/12/22 05:04 Labs: Abnormal Lab Results - Last 24 Hours (Table) 01/10/22 01/13/22 Range/Units 14:25 05:14 RBC 2.29 L (4.10-5.20) X 10*6/uL Hgb 6.5 L* (12.0-15.0) g/dL Hct 21.7 L (37.2-46.3) % MCHC 30.0 L (32.0-37.0) g/dL RDW 16.9 H (11.5-14.5) % Plt Count 112 L (140-440) X 10*3/uL Plt Count Comment DECREASED A Monocytes # 1.06 H (0.20-1.00) X 10*3/uL Immature Plt Fraction 6.2 H (1.1-6.1) % Crossmatch See Detail Assessment and Plan Plan: # Right femoral neck intertrochanteric fracture -Postop day #2 status post IM nail -Pain control is improving -Continue physical and occupational therapy Anemia of acute blood loss -Secondary to intraoperative blood loss -Hemoglobin 6.0 yesterday, received 1 unit transfusion on 01/12/22 -Hemoglobin today only increases 6.5 -Additional unit of blood ordered for transfusion today -No signs of active bleeding or any significant hemodynamic instability # LOGAN -Resolved -Most likely secondary to dehydration and possible blood loss -Repeat BMP in the morning Anticipated discharge to inpatient rehab in the next 24-48 hours Time with Patient: Less than 30
[2022-01-13] MEDS: FERROUS SULFATE 325 MG TAB PO SCH (16:18)
[2022-01-13] MEDS: SENNOSIDES-DOCUSATE SODIUM 1 EACH TAB PO SCH (21:29)
[2022-01-13] MEDS ORDERED: hydrALAZINE HCL 20 MG/ML 1 ML VIAL IVP STA (22:17)
[2022-01-14] MEDS: ACYCLOVIR 200 MG CAP PO SCH ×5 (02:02→21:48)
[2022-01-14] MEDS: HYDROcodone/APAP 5-325MG 1 EACH TAB PO PRN ×4 (02:02→21:14)
[2022-01-14] MEDS: SERTRALINE 100 MG TAB PO SCH ×2 (08:54→21:14)
[2022-01-14] MEDS: OXYBUTYNIN 10 MG TAB.ER.24 PO SCH (08:54)
[2022-01-14] MEDS: ENOXAPARIN 30 MG/0.3 ML SYRINGE SQ SCH (08:54)
[2022-01-14] MEDS: FERROUS SULFATE 325 MG TAB PO SCH ×2 (08:54→17:15)
[2022-01-14 09:14] LABS: African American GFR (CKD) 51.9 (60.0-200.0); Albumin/Globulin Ratio 0.97 (1.60-3.17); Anion Gap 9.7 mmol/L (10.00-18.00); BUN/Creat Ratio 28.45 Ratio (12.00-20.00); Blood Urea Nitrogen 31.3 mg/dL (9.0-27.0); Calcium 8.4 mg/dL (8.7-10.3); Carbon Dioxide 19.3 mmol/L (20.0-27.5); Globulin 3.1 g/dL (1.6-3.3); Non-African American GFR(CKD) 44.8 (60.0-200.0); Potassium 4.9 mmol/L (3.5-5.5); Total Bilirubin 0.5 mg/dL (0.30-1.20); Total Protein 6.1 g/dL (6.2-8.2)
[2022-01-14] MEDS: ARTIFICIAL TEARS-HYPROMELLOSE DROPS 15 ML BTL LEFT EYE SCH ×4 (10:12→21:48)
[2022-01-14 10:13] LABS: Basophils # (A) 0.04 X 10*3/uL (0.00-0.10); Basophils % (A) 0.6 %; Eosinophils # (A) 0.26 X 10*3/uL (0.04-0.35); HGB 8.1 g/dL (12.0-15.0); Immature Grans, Automated 0.3 %; Lymphocytes # (A) 2.49 X 10*3/uL (0.90-5.00); Lymphocytes % (A) 38.1 %; MCH 28.9 pg (27.0-32.0); MCHC 32.4 g/dL (32.0-37.0); MCV 89.3 fL (80.0-97.0); Mean Platelet Volume 12.6 fL (9.5-12.2); Monocytes % (A) 13.8 %; NRBC Per 100 WBC 0 /100 WBCS (0.0-0.0); Neutrophils # (A) 2.83 X 10*3/uL (1.80-7.70); Neutrophils % (A) 43.2 %; Platelet Count 81 X 10*3/uL (140-440); RDW 17.1 % (11.5-14.5); WBC 6.54 X 10*3/uL (4.50-10.00)
--- NOTE | 2022-01-14 10:30 | P.PN ---
Subjective Progress Note Date: 01/14/22 Principal diagnosis: Right hip IT fracture Patient was seen at bedside this morning resting comfortably sitting up in chair with legs elevated. Patient says she did get up with physical therapy this morning and walked around the room with assistance using a walker. Patient says her hip is feeling better today than it has been over the past couple days. She says she is able to bear weight on it okay. She says she is still having pain, however, it is under much better control this morning. Patient says she is looking forward to go to rehab. Patient denies chest pain, fever, chest breath, nausea, vomiting. Objective - Vital Signs Vital signs: Vital Signs Temp 97.8 F 01/14/22 07:08 Pulse 65 01/14/22 07:08 Resp 18 01/14/22 07:08 BP 118/63 01/14/22 07:08 Pulse Ox 96 01/14/22 07:08 Intake & Output 01/13/22 01/14/22 01/14/22 18:59 06:59 18:59 Intake Total 276 282 Output Total 500 600 Balance -224 -318 Intake: Blood Product 276 282 Rc Pheresis 2 As3 Unit 0 282 [id number] Rc Pheresis As-3 Unit 276 [id number] Output: Urine 500 600 Other: Voiding Method Indwelling Catheter - Exam Inspection: Opti-foam dressings present on right lateral upper leg. Jojo are well aligned and in good place. There is some serosanguineous drainage along the distal dressings. Dressings were removed. New optifoam dressings were placed over incisions. Some ecchymosis present along the right upper leg. Sensation: Sensation is equal, symmetric, bilaterally intact throughout. Palpation: There is moderate tenderness to palpation diffusely throughout the Right hip especially in lateral region over proximal incision. Nontender to palpation throughout rest of exam. Negative Homans bilaterally Range of motion: Patient is able to flex and extend digits in right foot and plantar/dorsiflex right ankle. Right hip/knee ROM limited due to pain. Patient has full range of motion in bilateral UE and LLE Motor: Left leg - 4+/5 in resisted hip flexion/extension, knee flexi on/extension, plantar flexion/dorsiflexion the left ankle; 4+/5 in resisted elbow flexion/extension, wrist flexion/extension, shoulder abduction, internal/external rotation of the bilateral UE. Patient is able to dorsi and plantarflex right ankle. Right hip/knee motor exams limited due to patient's pain. Insurance Assistant strength 4+/5 in bilateral UE Neurovascular: Refill under 3 seconds bilaterally in upper extremity digits. DP pulses intact, bilaterally, 2+. - Labs CBC & Chem 7: 01/14/22 05:39 01/14/22 05:39 Labs: Abnormal Lab Results - Last 24 Hours (Table) 01/10/22 01/13/22 01/14/22 Range/Units 14:25 05:14 05:39 RBC 2.29 L 2.80 L (4.10-5.20) X 10*6/uL Hgb 6.5 L* 8.1 L (12.0-15.0) g/dL Hct 21.7 L 25.0 L (37.2-46.3) % MCHC 30.0 L (32.0-37.0) g/dL RDW 16.9 H 17.1 H (11.5-14.5) % Plt Count 112 L 81 L (140-440) X 10*3/uL Plt Count Comment DECREASED A MPV 12.6 H (9.5-12.2) fL Monocytes # 1.06 H (0.20-1.00) X 10*3/uL Immature Plt Fraction 6.2 H (1.1-6.1) % Carbon Dioxide (20.0-27.5) mmol/L Anion Gap (10.00-18.00) mmol/L BUN (9.0-27.0) mg/dL Est GFR (CKD-EPI)AfAm (60.0-200.0) Est GFR (CKD-EPI)NonAf (60.0-200.0) BUN/Creatinine Ratio (12.00-20.00) Ratio Calcium (8.7-10.3) mg/dL ALT (8-44) U/L Total Protein (6.2-8.2) g/dL Albumin (3.8-4.9) g/dL Albumin/Globulin Ratio (1.60-3.17) g/dL Crossmatch See Detail 01/14/22 Range/Units 05:39 RBC (4.10-5.20) X 10*6/uL Hgb (12.0-15.0) g/dL Hct (37.2-46.3) % MCHC (32.0-37.0) g/dL RDW (11.5-14.5) % Plt Count (140-440) X 10*3/uL Plt Count Comment MPV (9.5-12.2) fL Monocytes # (0.20-1.00) X 10*3/uL Immature Plt Fraction (1.1-6.1) % Carbon Dioxide 19.3 L (20.0-27.5) mmol/L Anion Gap 9.70 L (10.00-18.00) mmol/L BUN 31.3 H (9.0-27.0) mg/dL Est GFR (CKD-EPI)AfAm 51.9 L (60.0-200.0) Est GFR (CKD-EPI)NonAf 44.8 L (60.0-200.0) BUN/Creatinine Ratio 28.45 H (12.00-20.00) Ratio Calcium 8.4 L (8.7-10.3) mg/dL ALT 7 L (8-44) U/L Total Protein 6.1 L (6.2-8.2) g/dL Albumin 3.0 L (3.8-4.9) g/dL Albumin/Globulin Ratio 0.97 L (1.60-3.17) g/dL Crossmatch Assessment and Plan Assessment: 1. Right hip intertrochanteric fracture status post fall; chronic pubic rami fractures Postoperative day 3 status post right hip IM nail Plan: 1. Right hip intertrochanteric fracture status post fall; chronic pubic rami fractures - surgery performed 01/11/2022 -right hip IM nail. patient stable at bedside this morning. We'll continue to follow patient while in hospital. [facility]. 2. Appreciate medical management 3. Pain management - [place]; Dilaudid 4. Acute Blood Loss Anemia - patient received unit PRBC's yesterday. Hemoglobin 8.1 this morning. 5. DVT & GI ppx - Lovenox; Senna 6. PT/OT - weightbearing as tolerated with walker and assistance 7. Encourage incentive spirometer use 8. Discharge planning - discharge to [facility] for [facility] tmrw, 01/15/2022. Time with Patient: Less than 30
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
[2022-01-14] MEDS ORDERED: polyethylene glycoL 3350 17 GM POWD.PACK PO STA (14:25)
--- NOTE | 2022-01-14 18:01 | P.PN ---
Subjective Progress Note Date: 01/14/22 Patient is an 78-year-old female with essential hypertension, right eye blindness, and prior falls who initially presented after a mechanical fall and subsequently found to have a right intertrochanteric hip fracture which was repaired by ortho. Patient seen and examined at bedside. She states she has pain with walking but it is tolerable at rest. She denies any chest pain, shortness breath, nausea. Last bowel movement was the day prior to yesterday. General: non toxic, no distress, appears at stated age Derm: warm, dry Head: atraumatic, normocephalic, symmetric Eyes: EOMI, no lid lag, anicteric sclera, clouding of right lens with decreased lid closure Mouth: no lip lesion, mucus membranes moist Cardiovascular: S1S2 reg, no murmur, positive posterior tibial pulse bilateral, Lungs: Coarse breath sounds bilateral, no rhonchi, no rales , no accessory muscle use Abdominal: soft, nontender to palpation, no guarding, no appreciable organomegaly Ext: no gross muscle atrophy, no edema, no contractures Neuro: CN II-XI grossly intact, no focal neuro deficits Psych: Alert, oriented, appropriate affect Assessment/plan: Right hip fracture status post post IM nailing -Management per primary team Acute blood loss anemia -Hemoglobin is stable, status post 3 units of packed red blood cells. Follow CBC in a.m. Hypertension -Now controlled: Continue with lisinopril and following blood pressures Acute kidney injury, resolved chronic: Urinary incontinence, depression Objective - Vital Signs Vital signs: Vital Signs Temp 97.9 F 01/14/22 14:07 Pulse 75 01/14/22 14:07 Resp 18 01/14/22 14:07 BP 103/52 01/14/22 14:07 Pulse Ox 98 01/14/22 14:07 Intake & Output 01/13/22 01/14/22 01/14/22 18:59 06:59 18:59 Intake Total 276 282 Output Total 500 600 Balance -224 -318 Intake: Blood Product 276 282 Rc Pheresis 2 As3 Unit 0 282 [id number] Rc Pheresis As-3 Unit 276 [id number] Output: Urine 500 600 Other: Voiding Method Indwelling Catheter - Labs CBC & Chem 7: 01/14/22 05:39 01/14/22 05:39 Labs: Abnormal Lab Results - Last 24 Hours (Table) 01/10/22 01/14/22 01/14/22 Range/Units 14:25 05:39 05:39 RBC 2.80 L (4.10-5.20) X 10*6/uL Hgb 8.1 L (12.0-15.0) g/dL Hct 25.0 L (37.2-46.3) % RDW 17.1 H (11.5-14.5) % Plt Count 81 L (140-440) X 10*3/uL MPV 12.6 H (9.5-12.2) fL Carbon Dioxide 19.3 L (20.0-27.5) mmol/L Anion Gap 9.70 L (10.00-18.00) mmol/L BUN 31.3 H (9.0-27.0) mg/dL Est GFR (CKD-EPI)AfAm 51.9 L (60.0-200.0) Est GFR (CKD-EPI)NonAf 44.8 L (60.0-200.0) BUN/Creatinine Ratio 28.45 H (12.00-20.00) Ratio Calcium 8.4 L (8.7-10.3) mg/dL ALT 7 L (8-44) U/L Total Protein 6.1 L (6.2-8.2) g/dL Albumin 3.0 L (3.8-4.9) g/dL Albumin/Globulin Ratio 0.97 L (1.60-3.17) g/dL Crossmatch See Detail
[2022-01-14] MEDS: SENNOSIDES-DOCUSATE SODIUM 1 EACH TAB PO SCH (21:14)
[2022-01-14] MEDS: lisinopriL 20 MG TAB PO SCH (21:48)
[2022-01-15] MEDS: ACYCLOVIR 200 MG CAP PO SCH ×3 (00:49→12:14)
[2022-01-15 05:00] LABS: HCT 27.4 % (34.0-46.0); HGB 8.7 gm/dL (11.4-16.0); Hypochromasia Slight; MCH 29.3 pg (25.0-35.0); MCHC 31.6 g/dL (31.0-37.0); Mean Platelet Volume 9.6; Platelet Count 148 k/uL (150-450); RBC 2.96 m/uL (3.80-5.40); RDW 15.8 % (11.5-15.5); WBC 6.2 k/uL (3.8-10.6)
[2022-01-15 05:20] LABS: MCV 92.7 fL (80.0-100.0)
[2022-01-15 07:14] VITALS: BP 118/62; RESP 18; TEMP 97.9
[2022-01-15] MEDS: OXYBUTYNIN 10 MG TAB.ER.24 PO SCH (08:30)
[2022-01-15] MEDS: SERTRALINE 100 MG TAB PO SCH (08:30)
[2022-01-15] MEDS: ARTIFICIAL TEARS-HYPROMELLOSE DROPS 15 ML BTL LEFT EYE SCH ×2 (08:30→12:14)
[2022-01-15] MEDS: FERROUS SULFATE 325 MG TAB PO SCH (08:30)
--- NOTE | 2022-01-15 08:58 | P.PN ---
Subjective Progress Note Date: 01/15/22 Principal diagnosis: Right hip IT fracture Patient was seen at bedside this morning resting comfortably lying semirecumbent in bed eating breakfast. Patient says she did get up with physical therapy yesterday and walked around the room with assistance using a walker. Patient sa ys her hip is feeling better today than it has been over the past couple days. She says she is able to bear weight on it okay. She says she is still having pain, however, it is under much better control this morning. Patient says she is looking forward to go to rehab. Patient denies chest pain, fever, chest breath, nausea, vomiting. Objective - Vital Signs Vital signs: Vital Signs Temp 97.9 F 01/15/22 07:13 Pulse 81 01/15/22 07:13 Resp 18 01/15/22 07:13 BP 118/62 01/15/22 07:13 Pulse Ox 95 01/15/22 00:37 Intake & Output 01/14/22 01/15/22 01/15/22 18:59 06:59 18:59 Output Total 300 650 Balance -300 -650 Output: Urine 300 650 Other: Voiding Method Indwelling Catheter - Exam Inspection: Opti-foam dressings present on right lateral upper leg. Jojo are well aligned and in good place. There is some serosanguineous drainage on the dressings. Some ecchymosis present along the right upper leg. Sensation: Sensation is equal, symmetric, bilaterally intact throughout. Palpation: There is moderate tenderness to palpation diffusely throughout the Right hip especially in lateral region over proximal incision. Nontender to p alpation throughout rest of exam. Negative Homans bilaterally Range of motion: Patient is able to flex and extend digits in right foot and plantar/dorsiflex right ankle. Right hip/knee ROM limited due to pain. Patient has full range of motion in bilateral UE and LLE Motor: Left leg - 4+/5 in resisted hip flexion/extension, knee flexion/extension, plantar flexion/dorsiflexion the left ankle; 4+/5 in resisted elbow flexion/extension, wrist flexion/extension, shoulder abduction, internal/external rotation of the bilateral UE. Patient is able to dorsi and plantarflex right ankle. Right hip/knee motor exams limited due to patient's pain. Director Of Retail Marketing strength 4+/5 in bilateral UE Neurovascular: Refill under 3 seconds bilaterally in upper extremity digits. DP pulses intact, bilaterally, 2+. - Labs CBC & Chem 7: 01/15/22 04:21 01/14/22 05:39 Labs: Abnormal Lab Results - Last 24 Hours (Table) 01/14/22 01/14/22 01/15/22 Range/Units 05:39 05:39 04:21 RBC 2.80 L 2.96 L (4.10-5.20) X 10*6/uL Hgb 8.1 L 8.7 L (12.0-15.0) g/dL Hct 25.0 L 27.4 L (37.2-46.3) % RDW 17.1 H 15.8 H (11.5-14.5) % Plt Count 81 L 148 L (140-440) X 10*3/uL MPV 12.6 H (9.5-12.2) fL Carbon Dioxide 19.3 L (20.0-27.5) mmol/L Anion Gap 9.70 L (10.00-18.00) mmol/L BUN 31.3 H (9.0-27.0) mg/dL Est GFR (CKD-EPI)AfAm 51.9 L (60.0-200.0) Est GFR (CKD-EPI)NonAf 44.8 L (60.0-200.0) BUN/Creatinine Ratio 28.45 H (12.00-20.00) Ratio Calcium 8.4 L (8.7-10.3) mg/dL ALT 7 L (8-44) U/L Total Protein 6.1 L (6.2-8.2) g/dL Albumin 3.0 L (3.8-4.9) g/dL Albumin/Globulin Ratio 0.97 L (1.60-3.17) g/dL Assessment and Plan Assessment: 1. Right hip intertrochanteric fracture status post fall; chronic pubic rami fractures Postoperative day 4 status post right hip IM nail Plan: 1. Right hip intertrochanteric fracture status post fall; chronic pubic rami fractures - surgery performed 01/11/2022 -right hip IM nail. patient stable at bedside this morning. We'll continue to follow patient while in hospital. Plan is for discharge to [facility] for [facility] 01/15/2022. 2. Appreciate medical management 3. Pain management - [place]; Dilaudid 4. DVT ppx - Lovenox 5. GI ppx - Senna 6. PT/OT - weightbearing as tolerated with walker and assistance 7. Encourage incentive spirometer use 8. Discharge planning - discharge to [facility] [place] for [facility] 01/15/2022. Time with Patient: Less than 30
[2022-01-15] MEDS ORDERED: ENOXAPARIN 40 MG/0.4 ML SYRINGE SQ SCH (09:00)
--- NOTE | 2022-01-15 09:06 | P.DS ---
Providers Date of admission: 01/10/22 14:20 Expected date of discharge: 01/15/22 Attending physician: Ankur Lewis DO Consults: 01/10/22 14:12 Consult Physician Urgent Consulting Provider: Mireya Evangelista Consult Reason/Comments: Medical Management - medical clearance for right hip IM nail surgery Do you want consulting provider notified?: Yes Primary care physician: Lucas Paulson Hospital Course: Date of admission: 01/11/2022 Date of discharge: 01/15/2022 Admission diagnosis: Right 4-part Intertrochanteric Hip Fracture Discharge diagnosis: Same Attending physician: Dr. Lewis Surgical procedures: Cephalomedullary nailing of right 4-part intertrochanteric proximal femur fracture Brief history: Patient is a 86-year-old female with a history of right 4 part intertrochanteric hip fracture status post fall. At this point patient has failed conservative treatment measures and has opted to proceed with a elective sit down medullary nailing of right 4 part intertrochanteric proximal femur fracture. Hospital course: Details of patient's surgery can be found in operative report. Patient tolerated the procedure well and was subsequently transported to orthopedic floor. Patient's orthopeidc and medical care was provided daily. Patient had daily laboratory tests performed for evaluation of overall blood counts. Patient had daily physical therapy to include strengthening range of motion as well as education with walker ambulation. Patient was treated with Lovenox for their postoperative DVT prophylaxis during their inpatient stay. Patient was noted to have a relatively uneventful postoperative course. Patient reported satisfactory pain control with oral pain medications by postoperative day 4. Patient showed satisfactory progress with physical therapy. Patient moved steadily through the program and had no difficulty meeting the goals by postoperative day 4. Given patient's otherwise satisfactory course and having met physical therapy goals, plan is to discharge patient [facility] on postoperative day 4. Discharge condition/disposition: Patient will be discharged [facility] in stable condition. Discharge medications: Instructions are given on resumption of patient's normal daily medications per primary care recommendation, in addition patient will be prescribed [place] 5 mg/325 mg; Lovenox; Colace. Discharge instructions: 1. Wound care and infection precautions, keep incision dry and covered while showering, no lotions, creams, moisturizers. No soaking, tubs, pools, hottubs. Do not scrub over the incision. 2. Weight-bear as tolerated with walker. 3. Ice and elevate when necessary. Do not exceed 20 minutes per hour with ice pack. 4. Utilize compression sleeve until seen at first follow up appointment. 5. Nursing care. 6. Physical therapy. 7. Pain meds and anticoagulants per prescription. 8. Pain medication has potential to cause constipation. Increase oral fluid and fiber intake. Contact primary care provider if you have not had a bowel movement within 48 hours after discharge 9. No anti-inflammatory medication until discussed at first post operative visit, this including Motrin, Aleve, Mobic, Diclofenac. 10. Follow up in office at 2 weeks postop with Fady Cardoza PA-C / Fahad Figueredo PA-C 11. Follow up with your primary care doctor 7-10 days after discharge. 12. Contact [facility] with any questions, . Keep incision clean, dry, intact. Follow up in office in 2 weeks Medications: [place] 5 mg/325 mg; Lovenox; Colace. Assessment: Right 4-part Intertrochanteric Hip Fracture Procedures: Cephalomedullary nailing of right 4-part intertrochanteric proximal femur fracture Patient Condition at Discharge: Good Plan - Discharge Summary Discharge Rx Participant: No New Discharge Prescriptions: New HYDROcodone/APAP 5-325MG [[place] 5-325] 1 tab PO Q6HR PRN #21 tab PRN Reason: Pain Docusate [Colace] 100 mg PO DAILY #30 capsule Enoxaparin [Lovenox] 40 mg SQ DAILY #21 each No Action traMADol HCL 50 - 100 mg PO Q6H PRN PRN Reason: Pain Acyclovir [Zovirax] 200 mg PO 5XD Acetaminophen Tab [Tylenol Tab] 1,000 mg PO Q8H PRN PRN Reason: Pain Sertraline [Zoloft] 100 mg PO BID Oxybutynin ER [Ditropan Xl] 10 mg PO DAILY Lidocaine 4% Patch 1 patch TOPICAL DAILY ALPRAZolam [Xanax] 1 - 2 mg PO HS PRN PRN Reason: Insomnia Carboxymethylcellulose Sodium [Refresh Tears] 1 drop LEFT EYE QID Lisinopril [Zestril] 2 tab PO HS Discharge Medication List ALPRAZolam [Xanax] 1 - 2 mg PO HS PRN 01/10/22 [History] Acetaminophen Tab [Tylenol Tab] 1,000 mg PO Q8H PRN 01/10/22 [History] Acyclovir [Zovirax] 200 mg PO 5XD 01/10/22 [History] Carboxymethylcellulose Sodium [Refresh Tears] 1 drop LEFT EYE QID 01/10/22 [History] Lidocaine 4% Patch 1 patch TOPICAL DAILY 01/10/22 [History] Lisinopril [Zestril] 2 tab PO HS 01/10/22 [History] Oxybutynin ER [Ditropan Xl] 10 mg PO DAILY 01/10/22 [History] Sertraline [Zoloft] 100 mg PO BID 01/10/22 [History] traMADol HCL 50 - 100 mg PO Q6H PRN 01/10/22 [History] Docusate [Colace] 100 mg PO DAILY #30 capsule 01/15/22 [Rx] Enoxaparin [Lovenox] 40 mg SQ DAILY #21 each 01/15/22 [Rx] HYDROcodone/APAP 5-325MG [[place] 5-325] 1 tab PO Q6HR PRN #21 tab 01/15/22 [Rx] Follow up Appointment(s)/Referral(s): Fahad Figueredo PAC [PHYSICIAN CHIROPRACTIC NEUROLOGIST] - 2 Weeks Lucas Paulson MD [Primary Care Provider] - 1-2 days Patient Instructions/Handouts: ORIF of Hip Fracture (DC) Activity/Diet/Wound Care/Special Instructions: Discharge instructions: 1. Wound care and infection precautions, keep incision dry and covered while showering, no lotions, creams, moisturizers. No soaking, tubs, pools, hottubs. Do not scrub over the incision. 2. Weight-bear as tolerated with walker. 3. Ice and elevate when necessary. Do not exceed 20 minutes per hour with ice pack. 4. Utilize compression sleeve until seen at first follow up appointment. 5. Nursing care. 6. Physical therapy. 7. Pain meds and anticoagulants per prescription. 8. Pain medication has potential to cause constipation. Increase oral fluid and fiber intake. Contact primary care provider if you have not had a bowel movement within 48 hours after discharge 9. No anti-inflammatory medication until discussed at first post operative visit, this including Motrin, Aleve, Mobic, Diclofenac. 10. Follow up in office at 2 weeks postop with Fady Cardoza PA-C / Fahad Figueredo PA-C 11. Follow up with your primary care doctor 7-10 days after discharge. 12. Contact [facility] with any questions, . Keep incision clean, dry, intact. Follow up in office in 2 weeks Medications: [place] 5 mg/325 mg; Lovenox; Colace. Discharge Disposition: TRANSFER TO SNF/ECF
[2022-01-15] MEDS: HYDROcodone/APAP 5-325MG 1 EACH TAB PO PRN ×2 (09:28→14:44)
[2022-01-15] MEDS ORDERED: bisacodyL 5 MG TABLET.DR PO STA (09:42)
[2022-01-15 09:55] VITALS: PULSE 116
--- NOTE | 2022-01-15 17:51 | P.PN ---
Subjective Progress Note Date: 01/15/22 (delayed charting seen at 0945) Principal diagnosis: fall Patient is an 78-year-old female with essential hypertension, right eye blindness, and prior falls who initially presented after a mechanical fall and subsequently found to have a right intertrochanteric hip fracture which was repaired by ortho. Patient seen and examined at bedside. Doing well. Denies any chest pain, shortness breath, nausea, vomiting. General: non toxic, no distress, appears at stated age Derm: warm, dry Head: atraumatic, normocephalic, symmetric Eyes: EOMI, no lid lag, anicteric sclera, clouding of right lens with decreased lid closure Mouth: no lip lesion, mucus membranes moist Cardiovascular: S1S2 reg, no murmur, positive posterior tibial pulse bilateral, Lungs: Coarse breath sounds bilateral, no rhonchi, no rales , no accessory muscle use Abdominal: soft, nontender to palpation, no guarding, no appreciable organomegaly Ext: no gross muscle atrophy, no edema, no contractures Neuro: CN II-XI grossly intact, no focal neuro deficits Psych: Alert, oriented, appropriate affect Assessment/plan: Right hip fracture status post post IM nailing -Management per primary team Acute blood loss anemia -Hemoglobin is stable, status post 3 units of packed red blood cells. Follow CBC in a.m. Hypertension -Now controlled: Continue with lisinopril and following blood pressures Acute kidney injury, resolved chronic: Urinary incontinence, depression med rec addressed on discharge. Follow-up with PCP after discharge from rehab. Objective - Vital Signs Vital signs: Vital Signs Temp 97.9 F 01/15/22 07:13 Pulse 116 H 01/15/22 09:49 Resp 18 01/15/22 07:13 BP 118/62 01/15/22 07:13 Pulse Ox 95 01/15/22 00:37 Intake & Output 01/14/22 01/15/22 01/15/22 18:59 06:59 18:59 Output Total 300 1300 Balance -300 -1300 Output: Urine 300 1300 Uretheral ([place]) 650 Other: Voiding Method Indwelling Catheter - Labs CBC & Chem 7: 01/15/22 04:21 01/14/22 05:39 Labs: Abnormal Lab Results - Last 24 Hours (Table) 01/15/22 Range/Units 04:21 RBC 2.96 L (3.80-5.40) m/uL Hgb 8.7 L (11.4-16.0) gm/dL Hct 27.4 L (34.0-46.0) % RDW 15.8 H (11.5-15.5) % Plt Count 148 L (150-450) k/uL
== END 2022-01-15 15:29 | DRG 481 ==
LOC: EC 10:32 → 4SSUR 14:20
PROVIDERS: ADMIT Orthopaedic Surgery Hand Surgery; ATTEND Orthopaedic Surgery Hand Surgery
PROC: 0QS636Z Reposition Right Upper Femur with Intramedullary Internal Fixation Device, Percutaneous Approach (ICD-10-PCS; principal; 2022-01-11 08:00)
PROC: 30233N1 Transfusion of Nonautologous Red Blood Cells into Peripheral Vein, Percutaneous Approach (ICD-10-PCS; 2022-01-12)
DX: S72.141A Displaced intertrochanteric fracture of right femur, initial encounter for closed fracture (principal); D62 Acute posthemorrhagic anemia; N17.9 Acute kidney failure, unspecified; Z94.84 Stem cells transplant status; D69.6 Thrombocytopenia, unspecified; W19.XXXA Unspecified fall, initial encounter; D72.829 Elevated white blood cell count, unspecified; F32.A Depression, unspecified; F41.9 Anxiety disorder, unspecified; H54.61 Unqualified visual loss, right eye, normal vision left eye; R32 Unspecified urinary incontinence; I10 Essential (primary) hypertension; W01.0XXA Fall on same level from slipping, tripping and stumbling without subsequent striking against object, initial encounter; S41.111A Laceration without foreign body of right upper arm, initial encounter; Z83.3 Family history of diabetes mellitus; Z87.891 Personal history of nicotine dependence; Z90.710 Acquired absence of both cervix and uterus; Z91.81 History of falling; Z96.653 Presence of artificial knee joint, bilateral; Z96.612 Presence of left artificial shoulder joint; Z96.611 Presence of right artificial shoulder joint
CPT/HCPCS: 36415; 70450; 71045; 72125; 72170; 72192; 73502; 80048; 80053; 85025; 85027; 85610; 85730; 86850; 86900; 86901; 86920; 90471; 90715; 93005; 96361; 96374; 96376; 99285